=== PATIENT | female | born 1995 | race Caucasian/White ===

== ENCOUNTER 2018-09-29 21:09 | Emergency (ER) | payer MEDICAID, SELFPAY ==
[2018-09-29 21:16] VITALS: BP 121/86; PULSE 78; RESP 16; TEMP 37.1; O2SAT 100
--- NOTE | 2018-09-29 21:41 | W.ED.GENAD ---
Discharge Plan Disposition Patient Disposition: HOME Condition: Good Discharge Details Chief Complaint: RashLesion Clinical Impression: Contact dermatitis Primary Care Provider: Meliza Ferris ED Provider: Fredis Rodas Meds and New Rx's Prescriptions: New prednisone 20 mg Tablet 40 mg PO HS Qty: 6 RF: 0 Continued acetaminophen [Mapap Extra Strength] 500 MG tablet 1,000 mg PO PRN PRNRF: 0 sumatriptan succinate 25 mg Tablet 25 mg PO PRN PRNRF: 0 Discharge Instructions Instructions: Dermatitis (ED) Additional Instructions: Continue Benadryl 25-50 mg every 6 hours for itching. Prednisone nightly over the next 3 days. Follow-up with primary care next week if not better. Return to ED for difficulty breathing, wheezing, throat swelling, spreading of rash. Referrals: Meliza Ferris [Primary Care Provider] - Discharge Data Discharge Date/Time-TO BE ENTERED AT DEPARTURE: 09/29/18 21:59 Medical Decision Making Patient with a contact dermatitis related to the use of peppermint oil. Will continue Benadryl for symptomatic relief. Discussed high potency steroid cream versus burst of prednisone over the weekend. She has elected prednisone. We discussed side effects. She is given her first dose here. She will follow-up with primary care next week if not better. Return to ED for difficulty breathing, throat swelling, worsening rash, other concerns. HPI General Mode of arrival: ambulatory. Date/Time Provider Initiated Documentation: 09/29/18 21:30. Limitations to Documentation: no limitations. Information obtained by: patient. HPI Narrative: Patient presents to ED with rash around her head and neck. It is in the same area where she placed peppermint oil for a headache a few days ago. Rash occurred the next day. Rash continues and is pruritic, raised, red. She has been using Benadryl which helps with the itching but it always comes back. She denies any respiratory difficulty. Her headache has resolved. She came in to see if there was something to do about the rash. Related Data Home Medications Medication Instructions Recorded Confirmed acetaminophen [Mapap Extra 1,000 mg PO PRN PRN 06/02/14 09/29/18 Strength] prednisone 40 mg PO HS #6 tab 09/29/18 sumatriptan succinate 25 mg PO PRN PRN 09/29/18 09/29/18 Previous Rx's Medication Instructions Recorded prednisone 40 mg PO HS #6 tab 09/29/18 Allergies Allergy/AdvReac Type Severity Reaction Status Date / Time adhesive Allergy Skin Rash Unverified 01/19/17 10:06 benzene Allergy Hives Unverified 01/19/17 10:06 hydrocodone Allergy Skin Rash Unverified 01/19/17 10:06 oxycodone Allergy Hives Unverified 01/19/17 10:06 General Stated Complaint: RashLesion NORA: 4 Review of Systems Review of Systems As documented in HPI otherwise negative as below. Const: no fever, chills, weakness Resp: no cough, SOB, pleuritic pain CV: no CP, diaphoresis, edema, syncope GI: no abdominal pain, nausea, vomiting, diarrhea Neuro: no headache, numbness, focal weakness, confusion PFSH Medical History Osteosarcoma of femur (Resolved) Surgical History S/P knee surgery (Inactive) Social History Smoking/Tobacco Use Status: Never Alcohol Intake: current Alcohol Intake frequency: holidays/special occasions only Alcohol type: beer, wine and hard liquor Drug use: Never Do you feel safe at home: Yes Do you feel safe in your relationship?: Yes Exam Narrative Exam Narrative: 1. Const: WDWN female in NAD. 2. Eyes: No conjunctival injection or scleral icterus. 3. ENT: NC/AT. No facial swelling or tenderness. Mucous membranes moist. 4. Neck: Supple without adenopathy. Trachea midline. 5. CVS: +S1/S2, No murmurs or gallops. 6. RESP: Unlabored respiratory effort. Clear to auscultation bilaterally. No wheezes rales or rhonchi 7. Skin: Warm, Dry. Blotchy, erythematous, maculopapular rash bilateral temples, bilateral mastoid, bilateral posterior neck region. 8. Neuro: A&O x3. 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 Sensation grossly intact, no focal neurologic deficits. Course Vital Signs Temperature 98.8 F 09/29/18 21:16 Pulse 78 09/29/18 21:16 Respiratory Rate 16 09/29/18 21:16 Blood Pressure 121/86 09/29/18 21:16 Pulse Oximetry 100 09/29/18 21:16 Temperature 98.8 F 09/29/18 21:16 Temperature Source Temporal Artery Scan 09/29/18 21:16 Pulse 78 09/29/18 21:16 Respiratory Rate 16 09/29/18 21:16 Respiratory Effort 09/29/18 21:16 Blood Pressure 121/86 09/29/18 21:16 Pulse Oximetry 100 09/29/18 21:16 Oxygen Delivery Method Room Air 09/29/18 21:16 Oxygen Flow Rate 0 09/29/18 21:16 Pain Level 4 09/29/18 21:16
--- NOTE | 2018-09-29 21:46 | ED.GENADUL_ITS ---
Discharge Plan Disposition Patient Disposition: HOME Condition: Good Discharge Details Chief Complaint: RashLesion Clinical Impression: Contact dermatitis Primary Care Provider: Meliza Ferris ED Provider: Fredis Rodas Meds and New Rx's Prescriptions: New prednisone 20 mg Tablet 40 mg PO HS Qty: 6 RF: 0 Continued acetaminophen [Mapap Extra Strength] 500 MG tablet 1,000 mg PO PRN PRNRF: 0 sumatriptan succinate 25 mg Tablet 25 mg PO PRN PRNRF: 0 Discharge Instructions Instructions: Dermatitis (ED) Additional Instructions: Continue Benadryl 25-50 mg every 6 hours for itching. Prednisone nightly over the next 3 days. Follow-up with primary care next week if not better. Return to ED for difficulty breathing, wheezing, throat swelling, spreading of rash. Referrals: Meliza Ferris [Primary Care Provider] - Discharge Data Discharge Date/Time-TO BE ENTERED AT DEPARTURE: 09/29/18 21:59 Medical Decision Making Patient with a contact dermatitis related to the use of peppermint oil. Will continue Benadryl for symptomatic relief. Discussed high potency steroid cream versus burst of prednisone over the weekend. She has elected prednisone. We discussed side effects. She is given her first dose here. She will follow-up with primary care next week if not better. Return to ED for difficulty breathing, throat swelling, worsening rash, other concerns. HPI General Mode of arrival: ambulatory . Date/Time Provider Initiated Documentation: 09/29/18 21:30 . Limitations to Documentation: no limitations . Information obtained by: patient . HPI Narrative: Patient presents to ED with rash around her head and neck. It is in the same area where she placed peppermint oil for a headache a few days ago. Rash occurred the next day. Rash continues and is pruritic, raised, red. She has been using Benadryl which helps with the itching but it always comes back. She denies any respiratory difficulty. Her headache has resolved. She came in to see if there was something to do about the rash. Related Data Home Medications Medication Instructions Recorded Confirmed acetaminophen [Mapap Extra 1,000 mg PO PRN PRN 06/02/14 09/29/18 Strength] prednisone 40 mg PO HS #6 tab 09/29/18 sumatriptan succinate 25 mg PO PRN PRN 09/29/18 09/29/18 Previous Rx's Medication Instructions Recorded prednisone 40 mg PO HS #6 tab 09/29/18 Allergies Allergy/AdvReac Type Severity Reaction Status Date / Time adhesive Allergy Skin Rash Unverified 01/19/17 10:06 benzene Allergy Hives Unverified 01/19/17 10:06 hydrocodone Allergy Skin Rash Unverified 01/19/17 10:06 oxycodone Allergy Hives Unverified 01/19/17 10:06 General Stated Complaint: RashLesion NORA: 4 Review of Systems Review of Systems As documented in HPI otherwise negative as below. Const: no fever, chills, weakness Resp: no cough, SOB, pleuritic pain CV: no CP, diaphoresis, edema, syncope GI: no abdominal pain, nausea, vomiting, diarrhea Neuro: no headache, numbness, focal weakness, confusion PFSH Medical History Osteosarcoma of femur (Resolved) Surgical History S/P knee surgery (Inactive) Social History Smoking/Tobacco Use Status: Never Alcohol Intake: current Alcohol Intake frequency: holidays/special occasions only Alcohol type: beer, wine and hard liquor Drug use: Never Do you feel safe at home: Yes Do you feel safe in your relationship?: Yes Exam Narrative Exam Narrative: 1. Const: WDWN female in NAD. 2. Eyes: No conjunctival injection or scleral icterus. 3. ENT: NC/AT. No facial swelling or tenderness. Mucous membranes moist. 4. Neck: Supple without adenopathy. Trachea midline. 5. CVS: +S1/S2, No murmurs or gallops. 6. RESP: Unlabored respiratory effort. Clear to auscultation bilaterally. No wheezes rales or rhonchi 7. Skin: Warm, Dry. Blotchy, erythematous, maculopapular rash bilateral temples, bilateral mastoid, bilateral posterior neck region. 8. Neuro: A&O x3. sign language interpreter II-XII grossly intact. Sensation grossly intact, no focal neurologic deficits. Course Vital Signs Temperature 98.8 F 09/29/18 21:16 Pulse 78 09/29/18 21:16 Respiratory Rate 16 09/29/18 21:16 Blood Pressure 121/86 09/29/18 21:16 Pulse Oximetry 100 09/29/18 21:16 Temperature 98.8 F 09/29/18 21:16 Temperature Source Temporal Artery Scan 09/29/18 21:16 Pulse 78 09/29/18 21:16 Respiratory Rate 16 09/29/18 21:16 Respiratory Effort 09/29/18 21:16 Blood Pressure 121/86 09/29/18 21:16 Pulse Oximetry 100 09/29/18 21:16 Oxygen Delivery Method Room Air 09/29/18 21:16 Oxygen Flow Rate 0 09/29/18 21:16 Pain Level 4 09/29/18 21:16
[2018-09-29] MEDS: predniSONE 20 MG TAB 60 MG PO (21:52)
[2018-09-29 22:16] VITALS: BP 119/78; PULSE 74; RESP 20; O2SAT 100
== END 2018-09-29 21:59 | disposition home or self-care (01) ==
PROVIDERS: Emergency Provider Emergency Medicine; PCP Nurse Practitioner Family
DX: L25.8 Unspecified contact dermatitis due to other agents (principal)
CPT/HCPCS: 99283; J7512

== ENCOUNTER 2021-12-21 17:01 | Emergency (ER) | payer MEDICAID, SELFPAY ==
[2021-12-21 17:15] VITALS: BP 137/98; PULSE 110; RESP 16; TEMP 37.1; O2SAT 98
[2021-12-21] MEDS: Ibuprofen 600 MG TAB PO (17:59)
[2021-12-21] MEDS: Acetaminophen 325 MG TAB 650 MG PO (17:59)
[2021-12-21] MEDS: Lidocaine/Epinephri/Tetracaine Topical Gel 3 ML (18:11)
--- NOTE | 2021-12-21 18:14 | ED.GENADUL_ITS ---
Discharge Plan Disposition Patient Disposition: HOME Condition: Stable Discharge Details Clinical Impression: Cutaneous abscess of right axilla, Cellulitis Primary Care Provider: Meliza Ferris ED Provider: Tin Wallace Home Meds and New Rx's Prescriptions: New sulfamethoxazole-trimethoprim 800-160 mg tablet 1 tab PO BID Qty: 27 0RF Continued acetaminophen [Mapap Extra Strength] 500 MG tablet 1,000 mg PO PRN PRN sumatriptan succinate 25 mg Tablet 25 mg PO PRN PRN Discharge Instructions Instructions: Abscess (ED) Additional Instructions: Please apply warm compresses 3 times daily to encourage drainage for the next few days. Take antibiotic as prescribed. Please contact your primary care physician to arrange follow-up. Return to the ER immediately for any worsening or new concerning symptoms including increased redness, warmth, pain or fever. Referrals: Meliza Ferris [Primary Care Provider] - Discharge Data Discharge Date/Time-TO BE ENTERED AT DEPARTURE: 12/21/21 19:07 Medical Decision Making 1849??26-year-old female here with abscess right axilla with mild cellulitis. Plan for incision and drainage and will cover with bactrim. Ibuprofen Tylenol was given. Let applied. 1849 --bedside soft tissue POCUS performed by me and revealed small 1 cm abscess. Abscess was incised and had small purulent discharge expressed. Plan for discharge with outpatient follow-up. Recommended warm compresses. Usual customary discharge instructions reviewed. HPI General Mode of arrival: ambulatory . Date/Time Provider Initiated Documentation: 12/21/21 17:47 . Limitations to Documentation: no limitations . Information obtained by: patient . HPI Narrative: 26-year-old female with no significant medical history presents with chief complaint of right axillary pain. She notes pain started about 1 week ago and has worsened. Initially she thought she had a pimple in the area. Pain is now severe and worse on palpation. She has associated mild localized redness. No associated fever. She has never had a history of abscess. Related Data Home Medications Medication Instructions Recorded Confirmed acetaminophen 500 mg tablet (Mapap 1,000 mg PO PRN PRN 06/02/14 12/21/21 Extra Strength) sumatriptan succinate 25 mg tablet 25 mg PO PRN PRN 09/29/18 09/29/18 sulfamethoxazole 800 1 tab PO BID #27 tabs 12/21/21 mg-trimethoprim 160 mg tablet Previous Rx's Medication Instructions Recorded sulfamethoxazole 800 1 tab PO BID #27 tabs 12/21/21 mg-trimethoprim 160 mg tablet Allergies Allergy/AdvReac Type Severity Reaction Status Date / Time adhesive Allergy Skin Rash Unverified 12/21/21 17:19 benzene Allergy Hives Unverified 12/21/21 17:19 hydrocodone Allergy Skin Rash Unverified 12/21/21 17:19 oxycodone Allergy Hives Unverified 12/21/21 17:19 General Stated Complaint: Cellulitis NORA: 3 Review of Systems Constitutional Constitutional: Denies fever(s) Integumentary/Breasts Skin/Breast: Reports as per HPI PFSH All Active Problems (Updated 12/21/21 @ 18:54 by Tin Wallace MD) Cutaneous abscess of right axilla (Acute) Cellulitis (Acute) Medical History Osteosarcoma of femur s/p resection; multiple surgeries Surgical History S/P knee surgery ACL repairs Social History Smoking/Tobacco Use Status: Never Smoking risk assessment performed?: Yes Alcohol Intake: current Alcohol Intake frequency: holidays/special occasions only Alcohol type: beer, wine and hard liquor Drug use: Occasionally Substance use type: marijuana Do you feel safe at home: Yes Do you feel safe in your relationship?: Yes Exam Const General: cooperative and no acute distress Cardio Rate: regular rate and not tachycardic Skin Other: Small pustule with 1 cm abscess, exquisitely tender, mild surrounding erythema right axilla Course Vital Signs Vital signs: Vital Signs Temperature 37.1 C 12/21/21 17:15 Pulse 110 H 12/21/21 17:15 Respiratory Rate 16 12/21/21 17:15 Blood Pressure 137/98 H 12/21/21 17:15 Pulse Oximetry 98 12/21/21 17:15 Temperature 37.1 C 12/21/21 17:15 Pulse 110 H 12/21/21 17:15 Respiratory Rate 16 12/21/21 17:15 Respiratory Effort Non-Labored 12/21/21 17:17 Blood Pressure 137/98 H 12/21/21 17:15 Blood Pressure Position Sitting 12/21/21 17:15 Pulse Oximetry 98 12/21/21 17:15 Pain Level 7 12/21/21 17:15 Procedures Abscess I/D Site: Other (axilla) Side (if applicable): Right Local Anesthetic: Lidocaine 1% and With Epi Amount of anesthesia used (mL): 5 Technique: Incised with #11 Blade Amount of fluid expressed (mL): 1 Irrigation: Yes Packing used?: None Complications: Other (none) PAWSS Have you Been Recently Intoxicated or Drunk Within the Last 30 days?: No Have you Ever Experienced Previous Episodes of Alcohol Withdrawal?: No Have you ever Experienced Withdrawal Seizures?: No Have you ever Experienced Delirium Tremens(DT)s?: No Have you ever undergone Alcohol Rehabilitation Treatment (i.e, inpt ot outpatient treatment programs)?: No Have you ever Experienced Blackouts?: No Have you ever Combined Alcohol with other Downers within the last 90 days?: No Have you ever Combined Alcohol with any other Substance of Abuse during the last 90 days?: No Positive Blood Alcohol level on Presentation? [PCS.BAL]: No Evidence of Increased Autonomic Activity (i.e. HR>120, tremor, sweating, agitation, nausea)?: No Result: 0
[2021-12-21] MEDS: Lidocaine 1% Pres-Free W/EPI 1/200,000 30 ML VIAL IJ (18:44)
[2021-12-21] MEDS: Sulfameth/Trimeth DS TAB 1 TAB PO (18:55)
[2021-12-21 19:05] VITALS: BP 118/76; PULSE 68; RESP 18; TEMP 37; O2SAT 98
== END 2021-12-21 19:07 | disposition home or self-care (01) ==
PROVIDERS: Emergency Provider Student in an Organized Health Care Education/Training Program; PCP Nurse Practitioner Family
DX: L02.411 Cutaneous abscess of right axilla (principal); L03.111 Cellulitis of right axilla
CPT/HCPCS: 10060